=== PATIENT | male | born 1975 | race Hispanic/Latino ===

== ENCOUNTER 2018-06-05 19:04 | Emergency (ER) | payer OTHER ==
[2018-06-05] MEDS ORDERED: LIDOCAINE 5% TOPICAL PATCH TP ONE (19:28)
[2018-06-05] MEDS ORDERED: DIAZEPAM 5 MG TABLET ONE (19:29)
[2018-06-05] MEDS ORDERED: KETOROLAC TROMETHAMINE 30MG/ML ONE (19:29)
== END 2018-06-05 21:03 | disposition home or self-care (01) ==
LOC: EDH 19:04
DX: S39.012A Strain of muscle, fascia and tendon of lower back, initial encounter (principal); X50.0XXA Overexertion from strenuous movement or load, initial encounter; Y93.89 Activity, other specified; Y92.89 Other specified places as the place of occurrence of the external cause; Y99.8 Other external cause status
CPT/HCPCS: 96372; 99283; J1885

== ENCOUNTER 2018-08-20 10:37 | Emergency (ER) | payer OTHER ==
[2018-08-20] MEDS ORDERED: CYCLOBENZAPRINE HCL 10 MG TABLET ONE (10:58)
[2018-08-20] MEDS ORDERED: ACETAMINOPHEN-CODEINE 300/30MG TAB ONE (10:58)
== END 2018-08-20 11:36 | disposition home or self-care (01) ==
LOC: EDH 10:37
DX: M62.830 Muscle spasm of back (principal); M54.5 Low back pain; Z87.891 Personal history of nicotine dependence
CPT/HCPCS: 72100

== ENCOUNTER 2020-02-09 13:47 | Emergency (ER) | payer OTHER ==
[2020-02-09 15:56] LABS: BASOPHILS % (AUTO) 0.3 % (0.0-5.0); EOSINOPHILS % (AUTO) 3.5 % (0.0-8.0); HEMATOCRIT 38.2 % (42-54); LYMPHOCYTES % (AUTO) 20.3 % (21.0-51.0); MEAN CORPUSCULAR HEMOGLOBIN 28.8 pg (27.0-33.0); MEAN CORPUSCULAR VOLUME 87.2 fL (79-99); MONOCYTES % (AUTO) 8.2 % (3.0-13.0); NEUTROPHILS % (AUTO) 67.4 % (40.0-77.0); PLATELET COUNT (AUTO) 179 K/uL (130-400); RED BLOOD CELL COUNT(AUTO) 4.38 MIL/uL (4.50-6.20); RED CELL DISTRIBUTION WIDTH 14.7 % (11.0-15.5); WHITE BLOOD COUNT (AUTO) 8.6 K/uL (4.8-10.8)
[2020-02-09 16:11] LABS: POTASSIUM 4.3 mmol/L (3.5-5.1)
[2020-02-09 16:51] LABS: APPEARANCE,URINE Clear (CLEAR); BILIRUBIN,URINE Negative (NEGATIVE); COLOR,URINE Yellow (YELLOW); GLUCOSE, URINE (UA) Negative (NEGATIVE); KETONES,URINE Negative (NEGATIVE); LEUKOCYTE ESTERASE ,URINE Negative (NEGATIVE); NITRATE,URINE Negative (NEGATIVE); OCCULT BLOOD,URINE Negative (NEGATIVE); PROTEIN,URINE Negative (NEGATIVE); UROBILINOGEN,URINE 0.2 mg/dL (0.2-1.0)
[2020-02-09] MEDS ORDERED: KETOROLAC TROMETHAMINE 30MG/ML ONE (16:57)
[2020-02-09] MEDS ORDERED: ORPHENADRINE CITRATE 30 MG/ML ML ONE (17:12)
== END 2020-02-09 18:59 | disposition home or self-care (01) ==
LOC: EDH 13:47
DX: S39.011A Strain of muscle, fascia and tendon of abdomen, initial encounter (principal); M62.838 Other muscle spasm; R07.89 Other chest pain; X58.XXXA Exposure to other specified factors, initial encounter; Y93.89 Activity, other specified; Y92.89 Other specified places as the place of occurrence of the external cause; Y99.8 Other external cause status; Z87.891 Personal history of nicotine dependence
CPT/HCPCS: 36415; 76770; 80048; 81003; 84484 ×2; 85025; 93005; 96374; 96375; 99285; J1885; J2360

== ENCOUNTER → 2020-03-20 | Outpatient (CLI) | payer OTHER | END | disposition home or self-care (01) | LOC: OIH 13:33 | PROVIDERS: ATTEND Family Medicine | DX: J98.11 Atelectasis (principal); J90 Pleural effusion, not elsewhere classified; J20.9 Acute bronchitis, unspecified; R06.02 Shortness of breath | CPT/HCPCS: 71046 ==

== ENCOUNTER 2020-03-22 00:21 | Inpatient (IN) | payer OTHER ==
[~2020-03-22] VITALS: Ht 175.3 cm; Wt 138.5 kg
[2020-03-22 00:57] LABS: CREATININE 1.3 mg/dL (0.5-1.5); POTASSIUM 3.9 mmol/L (3.5-5.1)
[2020-03-22 01:02] LABS: ALBUMIN 2.6 g/dL (3.5-5.0); BILIRUBIN,TOTAL 0.3 mg/dL (0.2-1.0); TOTAL PROTEIN, SERUM 9.9 g/dL (6.0-8.3)
[2020-03-22 01:03] LABS: BASOPHILS % (AUTO) 0.4 % (0.0-5.0); EOSINOPHILS % (AUTO) 3.1 % (0.0-8.0); HEMATOCRIT 33.1 % (42-54); LYMPHOCYTES % (AUTO) 15.8 % (21.0-51.0); MEAN CORPUSCULAR HEMOGLOBIN 26.5 pg (27.0-33.0); MEAN CORPUSCULAR HGB CONC 31.4 g/dL (32.0-36.0); MEAN CORPUSCULAR VOLUME 84.4 fL (79-99); MONOCYTES % (AUTO) 7.8 % (3.0-13.0); NEUTROPHILS % (AUTO) 72.1 % (40.0-77.0); PLATELET COUNT (AUTO) 377 K/uL (130-400); RED BLOOD CELL COUNT(AUTO) 3.92 MIL/uL (4.50-6.20); RED CELL DISTRIBUTION WIDTH 13.8 % (11.0-15.5); WHITE BLOOD COUNT (AUTO) 9.6 K/uL (4.8-10.8)
[2020-03-22 01:10] LABS: INR 1.03 (0.85-1.15); PROTHROMBIN TIME 11.1 SEC (9.6-11.6)
[2020-03-22 01:35] LABS: ABG BASE EXCESS 1.3 mmol/L (-2.0-3.0); ABG HCO3 25.9 mmol/L (21.0-28.0); ABG PCO2 41 mmHg (35-48)
[2020-03-22] MEDS ORDERED: AZITHROMYCIN 500MG+NS 250ML 250 ML IV ONE (02:17)
[2020-03-22] MEDS ORDERED: CEFTRIAXONE SODIUM 1 GM ONE (02:18)
[2020-03-22] MEDS ORDERED: IOHEXOL-350 75 ML VIAL IV ONE (02:43)
[2020-03-22] MEDS ORDERED: ONDANSETRON HCL 4 MG/2 ML VIAL IV PRN (04:00)
[2020-03-22] MEDS ORDERED: DOXYCYCLINE 100MG+NS 250ML IV SCH (04:00)
[2020-03-22] MEDS ORDERED: ACETAMINOPHEN 325 MG TAB PO PRN ×2 (04:00)
[2020-03-22] MEDS: AZITHROMYCIN 500MG+NS 250ML 250 ML IV SCH (04:00)
[2020-03-22] MEDS ORDERED: MAG HYDROX/AL HYDROX/SIMETH ES 30 ML SUSP UDCUP PO PRN (04:00)
[2020-03-22] MEDS ORDERED: ERGOCALCIFEROL (VITAMIN D2) 50,000 UNIT CAPSULE ONE (04:11)
[2020-03-22] MEDS ORDERED: DOXYCYCLINE 100MG+NS 250ML 250 ML IV ONE (04:12)
[2020-03-22] MEDS ORDERED: ONDANSETRON HCL 4 MG/2 ML VIAL ONE (06:45)
[2020-03-22] MEDS ORDERED: MORPHINE SULFATE 4 MG/1ML SYG ONE (06:45)
[2020-03-22] MEDS ORDERED: METHYLPREDNISOLONE SOD SUCC 40MG/ML 1ML ONE (08:31)
[2020-03-22] MEDS ORDERED: ASCORBIC ACID 500 MG TAB ONE (08:32)
[2020-03-22] MEDS ORDERED: ACETYLCYSTEINE 600 MG CAPSULE ONE (08:32)
[2020-03-22] MEDS ORDERED: ZINC SULFATE 220 CAPSULE ONE (08:33)
[2020-03-22] MEDS: ZINC SULFATE 220 CAPSULE PO SCH (09:00)
[2020-03-22] MEDS: ACETYLCYSTEINE 600 MG CAPSULE PO SCH ×2 (09:00→21:43)
[2020-03-22] MEDS: METHYLPREDNISOLONE SOD SUCC 40MG/ML 1ML IVP SCH ×3 (09:00→21:43)
[2020-03-22] MEDS: ASCORBIC ACID 500 MG TAB PO SCH (09:00)
[2020-03-22] MEDS ORDERED: ERGOCALCIFEROL (VITAMIN D2) 50,000 UNIT CAPSULE PO SCH (09:00)
[2020-03-22 16:00] VITALS: BP 143/86
[2020-03-22] MEDS: DOXYCYCLINE 100MG+NS 250ML 250 ML IV SCH (17:28)
--- NOTE | 2020-03-22 18:39 | NUR ---
ADMISSION PATIENT NEW ADMIT TO THE UNIT FROM ER.TRANSPORTED VIA BED.VSS.AT NAD.ADMISSION ASSESSMENT DONE,DENIES PAIN OR SOB.
[2020-03-22 20:21] VITALS: BP 127/68
[2020-03-23] VITALS (7 sets, daily range): BP systolic 134–157; BP diastolic 74–82
[2020-03-23] MEDS: AZITHROMYCIN 500MG+NS 250ML 250 ML IV SCH (03:55)
[2020-03-23 04:35] LABS: BASOPHILS % (AUTO) 0.1 % (0.0-5.0); HEMATOCRIT 34.5 % (42-54); LYMPHOCYTES % (AUTO) 6.5 % (21.0-51.0); MEAN CORPUSCULAR HEMOGLOBIN 26.2 pg (27.0-33.0); MEAN CORPUSCULAR VOLUME 84.6 fL (79-99); MONOCYTES % (AUTO) 2.7 % (3.0-13.0); NEUTROPHILS % (AUTO) 90.1 % (40.0-77.0); PLATELET COUNT (AUTO) 373 K/uL (130-400); RED BLOOD CELL COUNT(AUTO) 4.08 MIL/uL (4.50-6.20); RED CELL DISTRIBUTION WIDTH 13.6 % (11.0-15.5)
[2020-03-23 04:55] LABS: ALANINE AMINOTRANSFERASE 66 U/L (12-78); ALBUMIN 2.5 g/dL (3.5-5.0); ASPARTATE AMINOTRANSFERASE 30 U/L (10-37); BILIRUBIN,TOTAL 0.3 mg/dL (0.2-1.0); CARBON DIOXIDE 27 mmol/L (21-32); CHLORIDE 103 mmol/L (101-111); GLOMERULAR FILTR. RATE CALC 87 mL/min (>60); GLUCOSE,RANDOM 149 mg/dL (70-105); LACTATE DEHYDROGENASE 162 U/L (81-234); POTASSIUM 4.3 mmol/L (3.5-5.1); SODIUM SERUM 138 mmol/L (136-145); TOTAL PROTEIN, SERUM 9.7 g/dL (6.0-8.3); UREA NITROGEN, BLOOD 16 mg/dL (7-18)
[2020-03-23] MEDS: DOXYCYCLINE 100MG+NS 250ML 250 ML IV SCH (05:35)
[2020-03-23] MEDS: ZINC SULFATE 220 CAPSULE PO SCH (09:00)
[2020-03-23] MEDS ORDERED: AMPICILLIN SODIUM/SULBACTAM NA 1.5GM VIAL IV STA (10:12)
--- NOTE | 2020-03-23 10:33 | NUR ---
RE: THORACENTESIS PATINT SCHEDULED FOR LT SIDED THORACENTESIS. IMAGES TAKEN AND REVIEWED BY DR Reyes AYOUB. NOT ENOUGH FLUID TO PERFORM THORACENTESIS. PROCEDURE CANCELED AND Jesse MONTGOMERY RN NOTIFIED.
[2020-03-23] MEDS: ASCORBIC ACID 500 MG TAB PO SCH (10:52)
[2020-03-23] MEDS: ACETYLCYSTEINE 600 MG CAPSULE PO SCH ×2 (10:52→20:39)
[2020-03-23] MEDS: METHYLPREDNISOLONE SOD SUCC 40MG/ML 1ML IVP SCH ×3 (10:52→20:39)
[2020-03-23] MEDS: AMPICILLIN SODIUM/SULBACTAM NA 3 GM in SODIUM CHLORIDE 0.9% 100 ML IV SCH ×3 (12:00→17:45)
--- NOTE | 2020-03-23 13:29 | NUR ---
MARVA PLAN PATIENT PENDING IR FOR PLEURAL EFFUSION. [facility] WILL CONTINUE TO FOLLOW. Addendum: 03/23/20 at 1338 by DONA MAN RN CM Amended: Links added.
--- NOTE | 2020-03-23 13:59 | NUR ---
Family Communication All phone numbers on face sheet for family members are the same, which happen to be the patient's cell phone number. When I attempted to call patient's to give update, patient answered. When I asked patient if his had a phone number where she could be reached, he said only her work number, and that he'd rather we didn't call his at work. Patient said he will inform his on his own medical status, although he appreciates the effort.
--- NOTE | 2020-03-23 15:06 | NUR ---
CONSULT RECEIVED ORDERS FOR CARDIO THORACIC CONSULT FOR LOCULATED LEFT PLEURAL EFFUSION RADIOLOGY UNABLE TO REMOVE BY ECTOR, DR DIAZ IS EXERCISE RIDER, PLACED CALL TO MD, UNAVAILABLE AT THIS TIME, MESSAGE OF CONSULT INCLUDING NAME, AND ROOM NUMBER LEFT.
[2020-03-24] VITALS (8 sets, daily range): BP systolic 119–162; BP diastolic 62–91
[2020-03-24] MEDS: AMPICILLIN SODIUM/SULBACTAM NA 3 GM in SODIUM CHLORIDE 0.9% 100 ML IV SCH ×4 (01:13→17:09)
[2020-03-24] MEDS ORDERED: SODIUM CHLORIDE 0.9% 250 ML IV ONE (04:08)
[2020-03-24] MEDS: AZITHROMYCIN 500MG+NS 250ML 250 ML IV SCH (04:09)
[2020-03-24 06:05] LABS: BASOPHILS % (AUTO) 0.1 % (0.0-5.0); LYMPHOCYTES % (AUTO) 7.4 % (21.0-51.0); MEAN CORPUSCULAR HEMOGLOBIN 26.5 pg (27.0-33.0); MEAN CORPUSCULAR HGB CONC 31.5 g/dL (32.0-36.0); MEAN CORPUSCULAR VOLUME 84.2 fL (79-99); MONOCYTES % (AUTO) 5.5 % (3.0-13.0); NEUTROPHILS % (AUTO) 86.2 % (40.0-77.0); PLATELET COUNT (AUTO) 390 K/uL (130-400); RED BLOOD CELL COUNT(AUTO) 3.92 MIL/uL (4.50-6.20); WHITE BLOOD COUNT (AUTO) 15.7 K/uL (4.8-10.8)
[2020-03-24 06:18] LABS: INR 1.08 (0.85-1.15); PARTIAL THROMBOPLASTIN TIME 26.4 SEC (26.3-35.5); PROTHROMBIN TIME 11.6 SEC (9.6-11.6)
[2020-03-24 06:45] LABS: ALANINE AMINOTRANSFERASE 64 U/L (12-78); ALBUMIN 2.5 g/dL (3.5-5.0); ASPARTATE AMINOTRANSFERASE 26 U/L (10-37); BILIRUBIN,TOTAL 0.3 mg/dL (0.2-1.0); CARBON DIOXIDE 30 mmol/L (21-32); CHLORIDE 107 mmol/L (101-111); GLOMERULAR FILTR. RATE CALC 87 mL/min (>60); GLUCOSE,RANDOM 145 mg/dL (70-105); LACTATE DEHYDROGENASE 144 U/L (81-234); POTASSIUM 4.3 mmol/L (3.5-5.1); SODIUM SERUM 140 mmol/L (136-145); TOTAL PROTEIN, SERUM 9.1 g/dL (6.0-8.3); UREA NITROGEN, BLOOD 22 mg/dL (7-18)
[2020-03-24] MEDS: ZINC SULFATE 220 CAPSULE PO SCH (08:29)
[2020-03-24] MEDS: ACETYLCYSTEINE 600 MG CAPSULE PO SCH ×2 (08:29→21:00)
[2020-03-24] MEDS: ASCORBIC ACID 500 MG TAB PO SCH (08:29)
[2020-03-24] MEDS: METHYLPREDNISOLONE SOD SUCC 40MG/ML 1ML IVP SCH ×2 (10:16→13:00)
--- NOTE | 2020-03-24 10:34 | NUR ---
DCP CM spoke to pt discussed dc plans. Pt is independent prior to admission, lives at home with spouse. Denies any equipments/services. Feels safe to go back home, still works and drives, spouse able to assist with transportation and needs as necessary. DC plan to home once stable. CM to cont to follow up. Addendum: 03/24/20 at 1035 by CHRISTIANO MESSER LVN CM Amended: Links added.
[2020-03-24] MEDS ORDERED: CEFAZOLIN SODIUM 1 GM VIAL ONE ×2 (12:12→20:02)
[2020-03-24] MEDS ORDERED: COMPOUND IV MISC 1 EACH IVSOLN MISC PRN (12:15)
--- NOTE | 2020-03-24 13:00 | NUR ---
DCP CM spoke to pt discussed dc plans. Pt is independent prior to admission, lives at home w/spouse. Denies any equipments/services. Feels safe to go back home, still drives and works, spouse able to assist with transportation and needs as necessary. DC plan to home once stable. CM to cont to follow up. Pt sched for VATS today w/Dr Euceda. Addendum: 03/25/20 at 0907 by CHRISTIANO MESSER LVN CM Amended: Links added.
[2020-03-24] MEDS ORDERED: CEFAZOLIN SODIUM 1 GM VIAL IVP PRN (14:00)
[2020-03-24] MEDS ORDERED: DEXAMETHASONE SOD PHOSPHATE 10MG/ML 1ML VIAL ONE (17:44)
[2020-03-24] MEDS ORDERED: ONDANSETRON HCL 4 MG/2 ML VIAL ONE (17:44)
[2020-03-24] MEDS ORDERED: SUCCINYLCHOLINE CHLORIDE 20 MG/ML 10 ML VIAL ONE (17:44)
[2020-03-24] MEDS ORDERED: LIDOCAINE PF 2% 5ML ABBOJECT ONE (17:44)
[2020-03-24] MEDS ORDERED: FENTANYL CITRATE PF 50 MCG/1 ML 2ML VIAL ONE (17:45)
[2020-03-24] MEDS ORDERED: MIDAZOLAM HCL 1 MG/ML 2ML VIAL ONE (17:45)
[2020-03-24] MEDS ORDERED: PROPOFOL 10 MG/ML 20ML VIAL IV ONE (17:45)
[2020-03-24] MEDS ORDERED: GLYCOPYRROLATE 1 MG/5 ML SYRINGE ONE (17:45)
[2020-03-24] MEDS ORDERED: NEOSTIGMINE 5MG/5ML SYR IV ONE (17:45)
[2020-03-24] MEDS ORDERED: ROCURONIUM 10MG/1ML SYR 10 MG/ML ML ONE ×2 (17:45→19:20)
[2020-03-24] MEDS ORDERED: TRAMADOL HCL 50 MG TABLET PO PRN (19:30)
[2020-03-24] MEDS ORDERED: ACETAMINOPHEN 325 MG TAB PO PRN (19:30)
[2020-03-24] MEDS ORDERED: FENTANYL CITRATE PF 50 MCG/1 ML 5ML AMP IV ONE (19:57)
[2020-03-24] MEDS ORDERED: BUPIVACAINE/PF 0.25% 30ML VIAL IJ ONE (20:24)
[2020-03-24] MEDS ORDERED: MORPHINE SULFATE 4 MG/1ML SYG ONE (21:25)
[2020-03-24] MEDS: KETOROLAC TROMETHAMINE 30MG/ML IV SCH (21:49)
[2020-03-24 23:37] LABS: SPECIMENTYPE,BODY FLUID PLEURAL
[2020-03-24 23:38] LABS: APPEARANCE BODY FLUID SLIGHTLY CLOUDY (CLEAR); COLOR,BODY FLUID XANTHOCHROMIC (LT YELLOW); TOTAL VOLUME,BODY FLUID 80 mL
[2020-03-24 23:39] LABS: BODY FLUID RBC 2624 /cu. mm.; BODY FLUID WBC 847 /cu. mm.
[2020-03-24 23:44] LABS: BF BASOPHIL 0 %; BF EOSINOPHIL 0 %; BF LYMPHOCYTE 95 %; BF MONOCYTE 4 %
[2020-03-24] MEDS: TRAMADOL HCL 50 MG TABLET PO PRN (23:53)
[2020-03-25] VITALS (19 sets, daily range): BP systolic 125–165; BP diastolic 59–79
[2020-03-25] MEDS ORDERED: AMPICILLIN SODIUM/SULBACTAM NA 1.5GM VIAL ONE (00:07)
[2020-03-25] MEDS ORDERED: SODIUM CHLORIDE 0.9% 250 ML IV ONE (00:11)
[2020-03-25] MEDS: MORPHINE SULFATE 4 MG/1ML SYG IV PRN (02:00)
[2020-03-25] MEDS: KETOROLAC TROMETHAMINE 30MG/ML IV SCH ×4 (03:00→20:35)
[2020-03-25] MEDS: AZITHROMYCIN 500MG+NS 250ML 250 ML IV SCH (04:00)
[2020-03-25 04:37] LABS: SODIUM SERUM 143 mmol/L (136-145)
[2020-03-25 04:38] LABS: ALANINE AMINOTRANSFERASE 66 U/L (12-78); ALBUMIN 2.4 g/dL (3.5-5.0); ASPARTATE AMINOTRANSFERASE 51 U/L (10-37); BILIRUBIN,TOTAL 0.2 mg/dL (0.2-1.0); CARBON DIOXIDE 29 mmol/L (21-32); CHLORIDE 108 mmol/L (101-111); CREATININE 1.1 mg/dL (0.5-1.5); GLOMERULAR FILTR. RATE CALC 78 mL/min (>60); GLUCOSE,RANDOM 139 mg/dL (70-105); LACTATE DEHYDROGENASE 227 U/L (81-234); POTASSIUM 4.1 mmol/L (3.5-5.1); TOTAL PROTEIN, SERUM 8.2 g/dL (6.0-8.3); UREA NITROGEN, BLOOD 32 mg/dL (7-18)
[2020-03-25 05:01] LABS: BASOPHILS % (AUTO) 0.1 % (0.0-5.0); HEMATOCRIT 31.7 % (42-54); LYMPHOCYTES % (AUTO) 10.9 % (21.0-51.0); MEAN CORPUSCULAR HEMOGLOBIN 26.8 pg (27.0-33.0); MEAN CORPUSCULAR HGB CONC 31.2 g/dL (32.0-36.0); MEAN CORPUSCULAR VOLUME 85.9 fL (79-99); MONOCYTES % (AUTO) 7.8 % (3.0-13.0); NEUTROPHILS % (AUTO) 80.3 % (40.0-77.0); PLATELET COUNT (AUTO) 388 K/uL (130-400); RED BLOOD CELL COUNT(AUTO) 3.69 MIL/uL (4.50-6.20); RED CELL DISTRIBUTION WIDTH 14.3 % (11.0-15.5); WHITE BLOOD COUNT (AUTO) 17.4 K/uL (4.8-10.8)
[2020-03-25] MEDS: TRAMADOL HCL 50 MG TABLET PO PRN ×2 (06:30→12:27)
[2020-03-25] MEDS: AMPICILLIN SODIUM/SULBACTAM NA 3 GM in SODIUM CHLORIDE 0.9% 100 ML IV SCH ×5 (06:31→18:15)
[2020-03-25] MEDS ORDERED: PANTOPRAZOLE 40 MG/VIAL IVP SCH (09:00)
[2020-03-25] MEDS: ASCORBIC ACID 500 MG TAB PO SCH (09:32)
[2020-03-25] MEDS: ZINC SULFATE 220 CAPSULE PO SCH (09:32)
[2020-03-25] MEDS: ACETYLCYSTEINE 600 MG CAPSULE PO SCH ×2 (09:32→20:10)
[2020-03-25] MEDS ORDERED: ARTIFICAL TEARS SOL 15 ML OD PRN (09:45)
[2020-03-25] MEDS: PANTOPRAZOLE SODIUM 40 MG TABLET.DR PO SCH (11:33)
--- NOTE | 2020-03-25 15:35 | NUR ---
DR. JUÁREZ AT BEDSIDE AND ADVISED PATIENT ABOUT PRESENT PLAN OF CARE AND WILL BE TRANSFERRING TO PCCU. ORDERS NOTED AND WILL ADVISE CHARGE NURSE OF TRANSFER.
--- NOTE | 2020-03-25 17:06 | NUR ---
PT WILL BE TRANSFERRED TO 4TH FLOOR AND WILL BE TRANSFERRED AFTER REPORT IS CALLED. PT WILL BE TRANSFERRED BY CARDIAC CHAIR.
--- NOTE | 2020-03-25 17:15 | NUR ---
TRANSFER FROM ICU RECEIVED FROM RIVKA CORMIER RN, UP IN CHAIR, A&OX3, CALM COOPERATIVE AND DOES NOT APPEAR TO BE IN ANY DISTRESS NOR ANY NEURO DEFICITS PRESENT. CHEST TUBES X2 TO LEFT SIDE WITH 20CM CONTINUOUS SUCTION. PT RESTING COMFORTABLY, CALL LIGHT WITHIN REACH.
[2020-03-26] MEDS: AMPICILLIN SODIUM/SULBACTAM NA 3 GM in SODIUM CHLORIDE 0.9% 100 ML IV SCH ×5 (00:31→23:48)
[2020-03-26] MEDS: KETOROLAC TROMETHAMINE 30MG/ML IV SCH ×4 (03:00→20:53)
[2020-03-26 04:00] VITALS: BP 138/65
[2020-03-26 04:43] LABS: HEMATOCRIT 30.3 % (42-54); MEAN CORPUSCULAR HEMOGLOBIN 26.2 pg (27.0-33.0); MEAN CORPUSCULAR HGB CONC 31.4 g/dL (32.0-36.0); MEAN CORPUSCULAR VOLUME 83.7 fL (79-99); RED BLOOD CELL COUNT(AUTO) 3.62 MIL/uL (4.50-6.20); RED CELL DISTRIBUTION WIDTH 14.5 % (11.0-15.5); WHITE BLOOD COUNT (AUTO) 14.4 K/uL (4.8-10.8)
[2020-03-26 05:21] LABS: CREATININE 1.1 mg/dL (0.5-1.5); POTASSIUM 3.7 mmol/L (3.5-5.1)
[2020-03-26] MEDS: AZITHROMYCIN 500MG+NS 250ML 250 ML IV SCH (05:44)
--- NOTE | 2020-03-26 07:40 | NUR ---
ASSESSMENT ENCOUNTERED PT UP IN CHAIR, A&OX3, CALM COOPERATIVE AND DOES NOT APPEAR TO BE IN ANY DISTRESS NOR ANY NEURO DEFICITS PRESENT. PT DOES HAVE 2 LEFT CHEST TUBES WITH SEROSANGUINEOUS DRAINAGE IN TO 1 ATRIUM, INCISION DRESSING DRY AND INTACT, PT DOES C/O CONTINUOUS INCISIONAL PAIN BUT DENIES NAUSEA OR SOB. PT IS AMBULATORY, GAIT SLOW BUT STEADY WITH ASSIST. PT IS ABLE TO TOLERATE FOODS, FLUIDS AND MEDICATION WITH NO THROAT CLEARING OR COUGH. CALL LIGHT WITHIN REACH.
[2020-03-26 07:59] VITALS: BP 111/65
[2020-03-26] MEDS: PANTOPRAZOLE SODIUM 40 MG TABLET.DR PO SCH (10:19)
[2020-03-26] MEDS: ZINC SULFATE 220 CAPSULE PO SCH (10:19)
[2020-03-26] MEDS: ASCORBIC ACID 500 MG TAB PO SCH (10:19)
[2020-03-26] MEDS: ACETYLCYSTEINE 600 MG CAPSULE PO SCH (10:20)
[2020-03-26 12:00] VITALS: BP 123/62
[2020-03-26 16:00] VITALS: BP 103/68
[2020-03-26 19:55] VITALS: BP 128/62
[2020-03-26 23:40] VITALS: BP 125/64
[2020-03-27] MEDS: AZITHROMYCIN 500MG+NS 250ML 250 ML IV SCH (03:32)
[2020-03-27] MEDS: KETOROLAC TROMETHAMINE 30MG/ML IV SCH (03:32)
[2020-03-27 03:44] VITALS: BP 121/70
[2020-03-27 04:10] LABS: HEMATOCRIT 25.8 % (42-54); MEAN CORPUSCULAR HEMOGLOBIN 26.3 pg (27.0-33.0); MEAN CORPUSCULAR HGB CONC 31.8 g/dL (32.0-36.0); MEAN CORPUSCULAR VOLUME 82.7 fL (79-99); RED BLOOD CELL COUNT(AUTO) 3.12 MIL/uL (4.50-6.20); RED CELL DISTRIBUTION WIDTH 14.3 % (11.0-15.5); WHITE BLOOD COUNT (AUTO) 11.4 K/uL (4.8-10.8)
[2020-03-27 04:29] LABS: POTASSIUM 3.3 mmol/L (3.5-5.1)
[2020-03-27] MEDS: AMPICILLIN SODIUM/SULBACTAM NA 3 GM in SODIUM CHLORIDE 0.9% 100 ML IV SCH ×3 (05:31→17:46)
[2020-03-27] MEDS: ASCORBIC ACID 500 MG TAB PO SCH (07:52)
[2020-03-27] MEDS: ZINC SULFATE 220 CAPSULE PO SCH (07:53)
[2020-03-27] MEDS: PANTOPRAZOLE SODIUM 40 MG TABLET.DR PO SCH (07:53)
[2020-03-27 08:00] VITALS: BP 105/63
[2020-03-27] MEDS ORDERED: LIDOCAINE HCL-MPF 1% 2ML VIAL IJ PRN (08:15)
[2020-03-27] MEDS ORDERED: POTASSIUM CHLORIDE 10% ELIXIR 20 MEQ/15 ML UDCUP PO PRN (08:15)
[2020-03-27] MEDS ORDERED: POTASSIUM CHLORIDE 20MEQ/100ML 100 ML IV PRN (08:15)
[2020-03-27 11:15] VITALS: BP 115/65
[2020-03-27] MEDS: POTASSIUM CHLORIDE 20 MEQ ERTAB PO PRN ×3 (13:02→17:47)
[2020-03-27 16:00] VITALS: BP 123/68
[2020-03-27 20:00] VITALS: BP 128/63
[2020-03-28] VITALS (8 sets, daily range): BP systolic 120–158; BP diastolic 62–78
[2020-03-28] MEDS: AMPICILLIN SODIUM/SULBACTAM NA 3 GM in SODIUM CHLORIDE 0.9% 100 ML IV SCH ×5 (00:45→23:12)
[2020-03-28] MEDS: MORPHINE SULFATE 4 MG/1ML SYG IV PRN ×2 (02:36→17:08)
[2020-03-28] MEDS: AZITHROMYCIN 500MG+NS 250ML 250 ML IV SCH (04:22)
[2020-03-28 05:14] LABS: HEMATOCRIT 26.4 % (42-54); MEAN CORPUSCULAR HEMOGLOBIN 26.3 pg (27.0-33.0); MEAN CORPUSCULAR HGB CONC 31.4 g/dL (32.0-36.0); MEAN CORPUSCULAR VOLUME 83.5 fL (79-99); RED BLOOD CELL COUNT(AUTO) 3.16 MIL/uL (4.50-6.20); RED CELL DISTRIBUTION WIDTH 14.4 % (11.0-15.5); WHITE BLOOD COUNT (AUTO) 9.4 K/uL (4.8-10.8)
[2020-03-28] MEDS: ASCORBIC ACID 500 MG TAB PO SCH (07:58)
[2020-03-28] MEDS: PANTOPRAZOLE SODIUM 40 MG TABLET.DR PO SCH (07:58)
[2020-03-28] MEDS: ZINC SULFATE 220 CAPSULE PO SCH (07:58)
[2020-03-28 08:25] LABS: POTASSIUM 3.6 mmol/L (3.5-5.1)
[2020-03-28] MEDS: POTASSIUM CHLORIDE 20 MEQ ERTAB PO PRN ×2 (11:52→16:55)
[2020-03-29] MEDS: AZITHROMYCIN 500MG+NS 250ML 250 ML IV SCH (04:02)
[2020-03-29] MEDS: MORPHINE SULFATE 4 MG/1ML SYG IV PRN ×4 (04:03→20:50)
[2020-03-29 04:05] VITALS: BP 133/84
[2020-03-29] MEDS: AMPICILLIN SODIUM/SULBACTAM NA 3 GM in SODIUM CHLORIDE 0.9% 100 ML IV SCH ×4 (06:19→22:44)
[2020-03-29] MEDS: PANTOPRAZOLE SODIUM 40 MG TABLET.DR PO SCH (06:19)
[2020-03-29 06:21] LABS: HEMATOCRIT 26.8 % (42-54); PLATELET COUNT (AUTO) 273 K/uL (130-400); RED BLOOD CELL COUNT(AUTO) 3.19 MIL/uL (4.50-6.20); RED CELL DISTRIBUTION WIDTH 14.6 % (11.0-15.5); WHITE BLOOD COUNT (AUTO) 8.5 K/uL (4.8-10.8)
[2020-03-29 06:55] VITALS: BP 137/76
[2020-03-29 08:09] LABS: CREATININE 0.9 mg/dL (0.5-1.5); POTASSIUM 3.8 mmol/L (3.5-5.1)
[2020-03-29] MEDS: ZINC SULFATE 220 CAPSULE PO SCH (08:35)
[2020-03-29] MEDS: ASCORBIC ACID 500 MG TAB PO SCH (08:35)
[2020-03-29] MEDS: GABAPENTIN 300 MG CAPSULE PO SCH ×3 (09:59→20:50)
[2020-03-29 11:00] VITALS: BP 140/72
[2020-03-29] MEDS: POTASSIUM CHLORIDE 20 MEQ ERTAB PO PRN (14:24)
[2020-03-29 16:00] VITALS: BP_SYST 114; BP_SYST 128; BP_DIAS 62; BP_DIAS 64
[2020-03-29 20:08] VITALS: BP 141/70
[2020-03-29] MEDS: TRAMADOL HCL 50 MG TABLET PO PRN (22:44)
[2020-03-30] VITALS (8 sets, daily range): BP systolic 112–160; BP diastolic 60–86
[2020-03-30] MEDS: AZITHROMYCIN 500MG+NS 250ML 250 ML IV SCH (03:46)
[2020-03-30] MEDS: AMPICILLIN SODIUM/SULBACTAM NA 3 GM in SODIUM CHLORIDE 0.9% 100 ML IV SCH ×5 (05:48→23:43)
[2020-03-30] MEDS: MORPHINE SULFATE 4 MG/1ML SYG IV PRN ×2 (05:48→19:26)
[2020-03-30] MEDS: PANTOPRAZOLE SODIUM 40 MG TABLET.DR PO SCH (05:48)
[2020-03-30 05:55] LABS: HEMATOCRIT 31.1 % (42-54)
[2020-03-30] MEDS: ASCORBIC ACID 500 MG TAB PO SCH (09:20)
[2020-03-30] MEDS: GABAPENTIN 300 MG CAPSULE PO SCH ×3 (09:20→19:26)
[2020-03-30] MEDS: ZINC SULFATE 220 CAPSULE PO SCH (09:20)
[2020-03-30] MEDS: TRAMADOL HCL 50 MG TABLET PO PRN ×2 (09:25→22:03)
--- NOTE | 2020-03-30 21:45 | NUR ---
Patient called out at the beginning of the shift with complaints of pain. He stated that it was very bad and that he would like to have morphine to help keep him comfortable throughout the night. He was educated on the importance of being weaned off the morphine because he will not be D/C with that order. He stated that he understands. Patient vitals are stable & he is not showing any S/S of distress.
[2020-03-31 03:46] VITALS: BP 130/73
[2020-03-31] MEDS: AZITHROMYCIN 500MG+NS 250ML 250 ML IV SCH (04:05)
[2020-03-31] MEDS: TRAMADOL HCL 50 MG TABLET PO PRN ×3 (04:47→22:43)
[2020-03-31 06:04] LABS: HEMATOCRIT 28.6 % (42-54)
[2020-03-31] MEDS: AMPICILLIN SODIUM/SULBACTAM NA 3 GM in SODIUM CHLORIDE 0.9% 100 ML IV SCH ×3 (06:13→17:32)
[2020-03-31] MEDS: PANTOPRAZOLE SODIUM 40 MG TABLET.DR PO SCH (06:14)
[2020-03-31 08:13] LABS: BASOPHILS % (AUTO) 0.4 % (0.0-5.0); EOSINOPHILS % (AUTO) 3.1 % (0.0-8.0); LYMPHOCYTES % (AUTO) 19.4 % (21.0-51.0); MEAN CORPUSCULAR HEMOGLOBIN 26.6 pg (27.0-33.0); MEAN CORPUSCULAR HGB CONC 31.4 g/dL (32.0-36.0); MEAN CORPUSCULAR VOLUME 84.8 fL (79-99); MONOCYTES % (AUTO) 8.2 % (3.0-13.0); NEUTROPHILS % (AUTO) 65.8 % (40.0-77.0); PLATELET COUNT (AUTO) 292 K/uL (130-400); RED BLOOD CELL COUNT(AUTO) 3.42 MIL/uL (4.50-6.20); RED CELL DISTRIBUTION WIDTH 15.1 % (11.0-15.5); WHITE BLOOD COUNT (AUTO) 8.2 K/uL (4.8-10.8)
[2020-03-31] MEDS: ASCORBIC ACID 500 MG TAB PO SCH (08:24)
[2020-03-31] MEDS: GABAPENTIN 300 MG CAPSULE PO SCH ×3 (08:24→20:30)
[2020-03-31] MEDS: ZINC SULFATE 220 CAPSULE PO SCH (08:24)
[2020-03-31] MEDS: HEPARIN SODIUM 5000UNIT/ML 1ML VIAL SQ SCH ×2 (08:25→20:30)
[2020-03-31 08:34] VITALS: BP 129/65
[2020-03-31 12:53] VITALS: BP 113/62
--- NOTE | 2020-03-31 14:25 | NUR ---
RDSCREEN - LOS X 9 Pt admitted with Dyspnea, Pleural effusion, R/O COVID. Pt is tolerating Regular diet order with no report of GI distress, Good PO intake at 75-100%. Pt LBM 03/30/20 Pt with Obesity Class III. S/p Lung decortication, BIPAP at night as per EMR. Recommend continue Regular diet order Recommend 60mL ProMod QD RD to continue to monitor. Please notify as additional nutrition concerns arise. Thank you.
[2020-03-31 16:30] VITALS: BP 120/66
[2020-03-31 19:56] VITALS: BP 135/73
[2020-03-31 23:30] VITALS: BP 120/67
[2020-04-01] MEDS: AMPICILLIN SODIUM/SULBACTAM NA 3 GM in SODIUM CHLORIDE 0.9% 100 ML IV SCH ×4 (00:22→18:50)
[2020-04-01 04:14] VITALS: BP 115/66
[2020-04-01 05:55] LABS: BASOPHILS % (AUTO) 0.5 % (0.0-5.0); EOSINOPHILS % (AUTO) 3.7 % (0.0-8.0); HEMATOCRIT 25.3 % (42-54); LYMPHOCYTES % (AUTO) 24.6 % (21.0-51.0); MEAN CORPUSCULAR HEMOGLOBIN 26.2 pg (27.0-33.0); MEAN CORPUSCULAR HGB CONC 31.2 g/dL (32.0-36.0); MEAN CORPUSCULAR VOLUME 83.8 fL (79-99); NEUTROPHILS % (AUTO) 57.6 % (40.0-77.0); PLATELET COUNT (AUTO) 250 K/uL (130-400); RED BLOOD CELL COUNT(AUTO) 3.02 MIL/uL (4.50-6.20); RED CELL DISTRIBUTION WIDTH 15.1 % (11.0-15.5); WHITE BLOOD COUNT (AUTO) 6.4 K/uL (4.8-10.8)
[2020-04-01 06:10] LABS: ALANINE AMINOTRANSFERASE 55 U/L (12-78); ALBUMIN 2.1 g/dL (3.5-5.0); ASPARTATE AMINOTRANSFERASE 36 U/L (10-37); BILIRUBIN,TOTAL 0.3 mg/dL (0.2-1.0); CARBON DIOXIDE 30 mmol/L (21-32); CHLORIDE 102 mmol/L (101-111); CREATININE 0.9 mg/dL (0.5-1.5); GLOMERULAR FILTR. RATE CALC 98 mL/min (>60); GLUCOSE,RANDOM 93 mg/dL (70-105); POTASSIUM 3.9 mmol/L (3.5-5.1); SODIUM SERUM 139 mmol/L (136-145); TOTAL PROTEIN, SERUM 7.3 g/dL (6.0-8.3); UREA NITROGEN, BLOOD 12 mg/dL (7-18)
[2020-04-01] MEDS: PANTOPRAZOLE SODIUM 40 MG TABLET.DR PO SCH (06:15)
[2020-04-01] MEDS: TRAMADOL HCL 50 MG TABLET PO PRN (06:20)
[2020-04-01 08:00] VITALS: BP 125/64
[2020-04-01] MEDS: GABAPENTIN 300 MG CAPSULE PO SCH ×2 (10:12→13:52)
[2020-04-01] MEDS: ZINC SULFATE 220 CAPSULE PO SCH (10:12)
[2020-04-01] MEDS: ASCORBIC ACID 500 MG TAB PO SCH (10:12)
[2020-04-01] MEDS: HEPARIN SODIUM 5000UNIT/ML 1ML VIAL SQ SCH (10:15)
[2020-04-01 11:44] VITALS: BP 123/69
[2020-04-01] MEDS ORDERED: LEVO750T46 PO (14:56)
[2020-04-01] MEDS ORDERED: GABA300C PO (14:56)
[2020-04-01 16:00] VITALS: BP 119/54
== END 2020-04-01 20:00 | disposition home or self-care (01) | DRG 163 ==
LOC: EDH 00:21 → EDHIP 03:52 → 2AH 14:30 → 2CV 03-23 13:41 → 4CH 03-23 13:45 → DAHIP 03-24 20:40 → 4CH 03-25 17:36
PROVIDERS: ADMIT Internal Medicine; ATTEND Internal Medicine
PROC: 0W9B00Z Drainage of Left Pleural Cavity with Drainage Device, Open Approach (ICD-10-PCS; 2020-03-24)
PROC: 0BNJ0ZZ Release Left Lower Lung Lobe, Open Approach (ICD-10-PCS; principal; 2020-03-24 17:51)
PROC: 5A09357 Assistance with Respiratory Ventilation, Less than 24 Consecutive Hours, Continuous Positive Airway Pressure (ICD-10-PCS; 2020-03-26)
PROC: 5A09357 Assistance with Respiratory Ventilation, Less than 24 Consecutive Hours, Continuous Positive Airway Pressure (ICD-10-PCS; 2020-03-27)
PROC: 5A09357 Assistance with Respiratory Ventilation, Less than 24 Consecutive Hours, Continuous Positive Airway Pressure (ICD-10-PCS; 2020-03-28)
PROC: 5A09357 Assistance with Respiratory Ventilation, Less than 24 Consecutive Hours, Continuous Positive Airway Pressure (ICD-10-PCS; 2020-03-30)
PROC: 5A09357 Assistance with Respiratory Ventilation, Less than 24 Consecutive Hours, Continuous Positive Airway Pressure (ICD-10-PCS; 2020-04-01)
DX: J18.9 Pneumonia, unspecified organism (principal); J96.01 Acute respiratory failure with hypoxia; J95.1 Acute pulmonary insufficiency following thoracic surgery; A41.9 Sepsis, unspecified organism; J86.9 Pyothorax without fistula; J91.8 Pleural effusion in other conditions classified elsewhere; J98.11 Atelectasis; Z68.42 Body mass index [BMI] 45.0-49.9, adult; G89.12 Acute post-thoracotomy pain; Y83.8 Other surgical procedures as the cause of abnormal reaction of the patient, or of later complication, without mention of misadventure at the time of the procedure; E66.01 Morbid (severe) obesity due to excess calories; Z20.828 Contact with and (suspected) exposure to other viral communicable diseases; G47.33 Obstructive sleep apnea (adult) (pediatric); E87.70 Fluid overload, unspecified; E03.9 Hypothyroidism, unspecified; D64.9 Anemia, unspecified; R03.0 Elevated blood-pressure reading, without diagnosis of hypertension; K76.0 Fatty (change of) liver, not elsewhere classified; Z79.899 Other long term (current) drug therapy
CPT/HCPCS: 36415; 36600; 71045; 71275; 76604; 80048; 80053; 82550; 82728; 82803; 82945; 82948; 83605; 83615; 83735; 83880; 83986; 84145; 84157; 84484; 85014; 85018; 85025; 85027; 85045; 85378; 85610; 85730; 86140; 86850; 86900; 86901; 87040; 87071; 87076; 87116; 87205; 87206; 87426; 87486; 87581; 87633; 87798; 89051; 93005; 94660; 97039; A7048; C9113; G0378; J0295; J0330; J0456; J0690; J0696; J1040; J1100; J1644; J1885; J2001; J2250; J2270; J2405; J2704; J2710; J2920; J3010; J3490; J7030; J7040; J7050; Q9967; U0003

== ENCOUNTER 2021-01-01 10:22 | Emergency (ER) | payer OTHER ==
[~2021-01-01] VITALS: Ht 175.3 cm; Wt 145.1 kg
[~2021-01-01 10:22] MED LIST: GABA300C PO; LEVO750T46 PO
[2021-01-01 10:41] VITALS: BP 156/94
[2021-01-01 11:11] LABS: BASOPHILS % (AUTO) 0.7 % (0.0-5.0); EOSINOPHILS % (AUTO) 18.8 % (0.0-8.0); HEMATOCRIT 44.2 % (42-54); LYMPHOCYTES % (AUTO) 23.4 % (21.0-51.0); MEAN CORPUSCULAR HEMOGLOBIN 29.8 pg (27.0-33.0); MEAN CORPUSCULAR HGB CONC 33.9 g/dL (32.0-36.0); MEAN CORPUSCULAR VOLUME 87.9 fL (79-99); NEUTROPHILS % (AUTO) 49.6 % (40.0-77.0); PLATELET COUNT (AUTO) 175 K/uL (130-400); RED BLOOD CELL COUNT(AUTO) 5.03 MIL/uL (4.50-6.20); RED CELL DISTRIBUTION WIDTH 14.6 % (11.0-15.5); WHITE BLOOD COUNT (AUTO) 10.2 K/uL (4.8-10.8)
[2021-01-01 11:16] LABS: CREATININE 1.1 mg/dL (0.5-1.5)
[2021-01-01 11:21] LABS: ALBUMIN 4.1 g/dL (3.5-5.0); BILIRUBIN,TOTAL 0.8 mg/dL (0.2-1.0); TOTAL PROTEIN, SERUM 9.3 g/dL (6.0-8.3)
[2021-01-01] MEDS ORDERED: ACET1TAB25 PO (14:10)
[2021-01-01] MEDS ORDERED: CIPR500S4 PO (14:10)
[2021-01-01] MEDS ORDERED: CIPR500T10 PO (14:21)
[2021-01-01] MEDS ORDERED: KETOROLAC 30MG VIAL (30MG/ML) ONE (14:27)
[2021-01-01] MEDS ORDERED: KETOROLAC 30MG VIAL (30MG/ML) IV SCH (14:30)
[2021-01-01 14:52] LABS: APPEARANCE,URINE Clear (CLEAR); BILIRUBIN,URINE Negative (NEGATIVE); COLOR,URINE Yellow (YELLOW); GLUCOSE, URINE (UA) Negative (NEGATIVE); KETONES,URINE Negative (NEGATIVE); LEUKOCYTE ESTERASE ,URINE Negative (NEGATIVE); NITRATE,URINE Negative (NEGATIVE); OCCULT BLOOD,URINE Negative (NEGATIVE); PH,URINE 5.5 (5.0-8.0); PROTEIN,URINE Negative (NEGATIVE)
== END 2021-01-01 15:42 | disposition home or self-care (01) ==
LOC: EDH 10:22
DX: R10.9 Unspecified abdominal pain (principal); K80.20 Calculus of gallbladder without cholecystitis without obstruction; E66.9 Obesity, unspecified; F12.10 Cannabis abuse, uncomplicated; Z79.899 Other long term (current) drug therapy
CPT/HCPCS: 36415; 74176; 80053; 81003; 82150; 83690; 85025; 96374; 99284; J1885